=== PATIENT | female | born 1950 | race Caucasian/White ===

== ENCOUNTER 2020-03-15 08:54 | Outpatient (CLI) | payer MEDICARE, OTHER, SELFPAY ==
--- NOTE | 2020-03-15 08:57 | MM_ITS ---
WS: [id number] BILATERAL SCREENING DIGITAL MAMMOGRAM WITH CAD HISTORY: SCREENING COMPARISON: 05/17/2018 and 05/16/2017 Bilateral CC and MLO views submitted. Computer aided detection analyzed. Breast composition: The breasts are heterogeneously dense, which may obscure small masses. No suspici ous masses, microcalcifications or architectural distortion. Numerous bilateral calcifications. No austin spicious grouping of calcifications. MM/[place] [id number] IMPRESSION: BI-RADS: 2-Benign FOLLOW UP: 1 Year Follow-up
== END 2020-03-15 08:55 | disposition home or self-care (01) ==
LOC: RADSHAW 08:55
PROVIDERS: PCP Internal Medicine; Visit Provider Internal Medicine
DX: Z12.31 Encounter for screening mammogram for malignant neoplasm of breast (principal)
CPT/HCPCS: 77067

== ENCOUNTER 2020-07-20 12:52 | Outpatient (CLI) | payer MEDICARE, OTHER, SELFPAY ==
--- NOTE | 2020-07-20 13:05 | XR_ITS ---
WS: [id number] Lumbar spine, 3 views, 07/20/2020 Clinical Data: ARTHRODESIS STATUS Comparison: None. Findings: The patient is had a posterior lumbar fusion with bilateral pedicle screws at L2, L3 and L4. There ar e rods connecting the pedicle screws. There is a transverse band at the L2-L3 level. There is a disc cage at L2-L3 and L3-L4. There is a levoscoliosis. The transverse processes and SI joints are normal. There is degenerative di sc narrowing and change at L1-L2 and L5-S1.. No compression fractures are seen. There is calcificatio n of the wall of the abdominal aorta but no aneurysm. XR/XR lumbar spine 2-3V* 50095 Impression: 1. Intact posterior lumbar fusion with bilateral pedicle screws and connecting rods. 2. Artificial disc material inserted at L2-L3 and L3-L4. 3. Degenerative disc changes at L1-L2 and L5-S1. 4. Levoscoliosis.
== END 2020-07-20 12:53 | disposition home or self-care (01) ==
LOC: RADWPI 12:57
PROVIDERS: PCP Internal Medicine; Visit Provider Nurse Practitioner Family
DX: Z98.1 Arthrodesis status (principal); M51.37 Other intervertebral disc degeneration, lumbosacral region
CPT/HCPCS: 72100

== ENCOUNTER → 2020-12-07 09:03 | Outpatient (BNVA) | payer MEDICARE, OTHER, SELFPAY | PROVIDERS: PCP Internal Medicine; Visit Provider Internal Medicine | DX: Z20.822 Contact with and (suspected) exposure to COVID-19 (principal); Z80.0 Family history of malignant neoplasm of digestive organs | CPT/HCPCS: 87635 ==

== ENCOUNTER 2020-12-10 08:25 | Day surgery (SDC) | payer MEDICARE, OTHER, SELFPAY ==
[2020-12-08 15:29] VITALS: BMI 30.2
--- NOTE | 2020-12-10 09:10 | ANES.PREANE2 ---
Pre-Anesthetic Assessment Pre-Anesthetic Assessment: Height/Weight: Height 1.57 m Weight 74.843 kg Preop Diagnosis: sc Proposed Procedure: Operation Date: 12/10/20 10:00 Proposed Procedures p Colonoscopy g0105 z80.0(Not Applicable) - Jagdish Brewer MD Was Beta Reebkah taken within 24 hours: N/A Was Clonidine taken within 24 hours: N/A Social: Social History: No alcohol and No tobacco Exam: Pre-Anes Outpt Exam: alert, oriented x 3, clear to auscultation bilaterally and regular rate & rhythm Airway: Submandibular: WNL Cervical ROM: WNL MP: 2 Dentition: Full CV/HEM: CV/HEM: HTN GI: GI: GERD Anesthetic Plan: ASA status: 2 Anesthesia: MAC Risk of > 500 ml blood loss (7ml/kg in children): No PFSH Anesthesia PFSH: Social History (Updated 11/24/20 @ 15:19 by BRIAN Stafford) Smoking and tobacco status: never smoked Adopted: No Marital status: Number of children: 3 Data Anesthesia Cardiac Studies: No Data to Display
--- NOTE | 2020-12-10 09:14 | W.PM.OPSFHP ---
Same Day Surgery H&P Indication for Procedure/HPI DATE OF PROCEDURE: December 10, 2020 CHIEF COMPLAINT/INDICATIONFOR SURGICAL PROCEDURE: Family history of colon cancer PREOP DIAGNOSIS: sc PLANNED PROCEDRUE: Operation Date: 12/10/20 10:00 Proposed Procedures p Colonoscopy g0105 z80.0(Not Applicable) - Jagdish Brewer MD Medications/Allergies* Home Medications Medication Instructions Recorded Confirmed Type Lactobacillus rhamnosus GG 1 cap PO DAILY 12/08/20 12/08/20 History [Culturelle] Allergies/Adverse Reactions Allergy/AdvReac Type Severity Reaction Status Date / Time aspirin Allergy ADR-Headach Verified 12/08/20 15:26 e niacin Allergy ALGY-Rash Verified 12/08/20 15:26 tetanus and diphtheria Allergy ALGY-Hives Verified 12/08/20 15:26 toxoids Pertinent History/Comorbid Conditions* Social History Smoking and tobacco status: never smoked Adopted: No Marital status: Number of children: 3 Pertinent Exam Findings alert, oriented x 3, clear to auscultation bilaterally, regular rate & rhythm, operative site marked and procedure specific exam findings Recommendations Surgery/Procedure today Coding Level of Care Code Acute Photofinishing 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
[2020-12-10 09:17] VITALS: BP 136/86; PULSE 99; RESP 16; TEMP 36.2; O2SAT 95
[2020-12-10] MEDS: sodium chloride 0.9% 1,000 ML 30 ML IV (09:34)
[2020-12-10 10:56] VITALS: BP 137/73; PULSE 90; RESP 18; TEMP 36.6; O2SAT 94
--- NOTE | 2020-12-10 11:06 | ANE.PACU2 ---
Inpatient post-anesthesia follow up: Airway intact: Yes Vital signs: Temperature 97.8 F Pulse Rate 90 Respiratory Rate 18 Blood Pressure 137/73 Pulse Oximetry 94 Oxygen Delivery Me thod Room Air Oxygen Flow Rate Fraction of Inspir ed Oxygen Hydration adequate: Yes Nausea and vomiting: No Pain level: 1 Mental status: Baseline
[2020-12-10 11:17] VITALS: BP 136/86; PULSE 81; RESP 16; O2SAT 95
== END 2020-12-10 11:25 | disposition home or self-care (01) ==
PROVIDERS: PCP Internal Medicine; Visit Provider Internal Medicine
PROC: 0DJD8ZZ Inspection of Lower Intestinal Tract, Via Natural or Artificial Opening Endoscopic (ICD-10-PCS; CPT 45378; principal; 2020-12-10 10:00)
DX: Z12.11 Encounter for screening for malignant neoplasm of colon (principal); Z80.0 Family history of malignant neoplasm of digestive organs; I10 Essential (primary) hypertension; K21.9 Gastro-esophageal reflux disease without esophagitis
CPT/HCPCS: 45378; 96360; G0121; J2704; J7030

== ENCOUNTER → 2022-02-07 15:39 | Outpatient (BNVA) | payer MEDICARE, OTHER, SELFPAY | PROVIDERS: PCP Internal Medicine; Visit Provider Internal Medicine | DX: R30.0 Dysuria (principal); R07.9 Chest pain, unspecified | CPT/HCPCS: 80053; 80061; 81000; 85025 ==

== ENCOUNTER 2022-03-07 08:46 | Outpatient (CLI) | payer MEDICARE, OTHER, SELFPAY ==
[2022-03-07 08:52] VITALS: BMI 32.3
--- NOTE | 2022-03-07 08:53 | NMCV_ITS ---
NM mag perf SPECT r/s* [id number] Tali Cortez Age: 71 Gender: F : 1950 Exam Date: 03/07/2022 10:08 Ordering Phys: Jagdish Brewer MD Technologist: SKY Vasquez Exam Location: [facility] Indications: CHEST PAIN STRESS TEST Please [facility] IMAGE PROTOCOL Rest/Stress 1 Lexiscan Day Radiopharmaceutical Dose (mCi) Administration Site Administered by Rest: Tc-99m 10.8 IV SKY Andres Sestamibi Stress:Tc-99m 32.4 IV SKY Andres Sestamibi Rest: 07-Mar-2022 60 Discovery 630 Stress: 07-Mar-2022 30 Discovery 630 0.4mg Lexiscan. Images obtained in supine and prone position. SPECT RESULTS Technical Quality: Good Raw Data Analysis: Subdiaphragmatic activity Image Corrections: No attenuation or motion correction applied Summed Stress Score: 0 Summed Rest Score: 0 Summed Difference Score: 0 PERFUSION FINDINGS SPECT images demonstrate homogeneous tracer distribution throughout the myocardium. FUNCTIONAL RESULTS (calculated via Gated SPECT) Stress Image LV EF (%): 80 Stress EDV (mL):46 TID: 1.05 Stress ESV (mL):9 FUNCTIONAL FINDINGS: There is normal left ventricular systolic function. IMPRESSIONS 1. Normal myocardial perfusion imaging with no evidence of ischemia 2. LV systolic function is normal Don Kendall MD (Electronically Signed) Final Date: 07 March 2022 12:25 S
--- NOTE | 2022-03-07 08:53 | ECG_ITS ---
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 Interpretive Statements NAME OF STUDY: LEXISCAN SESTAMIBI STRESS TEST INDICATION: [Chest Pain] Procedure: At the baseline, the blood pressure was 148/83 mmHg with a heart rate of 77 bpm. The electrocardiogram showed normal sinus rhythm, normal axis with normal ST and T's. The Lexiscan was infused over a period of 20 seconds. A total of 0.4 mg of Lexiscan was infused. The stress phase was continued for a total of 5 minutes. Heart rate was at the end of stress phase was 95 bpm and a blood pressure of 141/75 mmHg. The EKG at the peak infusion revealed normal sinus rhythm with no significant ST-T wave changes. Sestamibi was injected 20 seconds after the Lexiscan infusion. Blood pressure at the end of recovery phase was 143/74 mmHg with a heart rate of 93 bpm. Conclusion: 1. Normal EKG response to Lexiscan infusion 2. No Lexiscan induced chest pain or cardiac arrhythmia. 3. Normal blood pressure and heart rate response. 4. Sestamibi/sestamibi perfusion scan pending; see separate report. Electronically Signed On 03-26-2022 23:53:46 CDT by Don Kendall M.D. [email or web address]
[2022-03-07 10:47] VITALS: BP 140/82; PULSE 99
[2022-03-07] MEDS: regadenoson 0.4 Mg/5 ml Syringe IVP (10:47)
== END 2022-03-07 08:47 | disposition home or self-care (01) ==
LOC: CDL 08:49
PROVIDERS: PCP Internal Medicine; Visit Provider Internal Medicine
DX: R07.9 Chest pain, unspecified (principal); R06.02 Shortness of breath
CPT/HCPCS: 78452; 93017; A9500; J2785